=== PATIENT | male | born 1960 | race Caucasian/White ===

== ENCOUNTER 2017-02-27 06:42 | Day surgery (SDC) | payer OTHER ==
[2017-02-26 10:26] VITALS: BMI 32.6
[2017-02-27] MEDS ORDERED: Oxymetazoline HCl 0.05% ( 15 ML ) ONE ×2 (07:32→09:18)
[2017-02-27] MEDS ORDERED: Fentanyl 100 MCG/2 ML VIAL ONE (09:07)
[2017-02-27] MEDS ORDERED: Bacitracin Zinc Ointment 30 gm TUBE ONE ×2 (09:19→09:58)
[2017-02-27] MEDS ORDERED: Lidocaine 1% w/Epinephrine 1:200K 30 ML VIAL ONE (09:19)
[2017-02-27] MEDS ORDERED: Glycopyrrolate 0.2 MG/ML 5 ML SYRINGE ONE (09:33)
[2017-02-27] MEDS ORDERED: Ondansetron HCl/PF 4 MG/2 ML Vial ONE (09:33)
[2017-02-27] MEDS ORDERED: Dexamethasone 20 MG/5 ML VIAL ONE (09:33)
[2017-02-27] MEDS ORDERED: Lidocaine 2% PF 10 ML AMP (For Epidural Use) ONE (09:33)
[2017-02-27] MEDS ORDERED: Propofol 200 MG/20 ML VIAL ONE (09:33)
[2017-02-27] MEDS ORDERED: Succinylcholine Chloride 20 MG/ML 10 ml SYRINGE FS ONE (09:33)
[2017-02-27] MEDS ORDERED: Ketorolac Tromethamine 30 MG/ML VIAL ONE (09:33)
[2017-02-27] MEDS ORDERED: Metoclopramide HCl 10 MG/2 ML VIAL ONE (09:33)
[2017-02-27] MEDS ORDERED: Ondansetron HCl/PF 4 MG/2 ML Vial IVP PRN (11:04)
[2017-02-27] MEDS ORDERED: Promethazine HCl 25 MG/ML VIAL IM/IV PRN (11:04)
[2017-02-27] MEDS ORDERED: Non-Formulary Medication 1 EACH PO PRN (11:04)
[2017-02-27] MEDS ORDERED: Morphine Sulfate 2 MG/ML SYRINGE ONE ×2 (11:05→11:14)
[2017-02-27] MEDS ORDERED: Hydrocodone-Acetamin 15 ML UDCUP ONE (12:16)
--- NOTE | 2017-02-28 06:36 | OP ---
DATE OF PROCEDURE: 02/27/2017 PREOPERATIVE DIAGNOSES: 1. Chronic rhinosinusitis. 2. Left nasal cavity polyposis. 3. Allergic fungal sinusitis. 4. Nasal septal deviation. 5. Bilateral inferior turbinate hypertrophy. 6. Chronic tonsillitis. 7. Tonsillar hypertrophy. POSTOPERATIVE DIAGNOSES: 1. Chronic rhinosinusitis. 2. Left nasal cavity polyposis. 3. Allergic fungal sinusitis. 4. Nasal septal deviation. 5. Bilateral inferior turbinate hypertrophy. 6. Chronic tonsillitis. 7. Tonsillar hypertrophy. PROCEDURES: 1. Bilateral endoscopic sinus surgery, total ethmoidectomies. 2. Bilateral endoscopic sinus surgery, maxillary antrostomies. 3. Bilateral endoscopic sinus surgery, frontal sinusotomies. 4. Nasal septoplasty. 5. Bilateral inferior turbinate submucosal resection. 6. Tonsillectomy. SURGEON: Flavio Ceballos M.D. ESTIMATED BLOOD LOSS: 50 mL. COMPLICATIONS: None. ANESTHESIA: GETA. PROCEDURE: The patient was taken to the operating room and placed up on the table. General endotra cheal anesthesia was obtained by the Anesthesia staff. Tube was secured in the midline of the lower lip. Shoulder roll was then placed. The Grecia-Augustin mouth gag was then introduced into the oral c avity and was retracted. The tonsils were 3+ cryptic, a curved Allis clamp was then used to grasp t he tonsil and portions of the anterior pillar. The Bovie electrocautery was used to perform a subca psular tonsillectomy bilaterally. Following this, the patient was then positioned in the beach romelia r position and 0 degree scope was advanced into the nasal cavity. 1% lidocaine with 1:100,000 epine phrine was injected into the nasal septum, inferior turbinates and lateral nasal wall bilaterally. atient was then placed in the beach chair position, and Afrin pledgets were placed in the nasal cavi ty. Injections of 1% lidocaine with 1:100,000 epinephrine were made into the nasalseptum as well as the inferior turbinates. Patient was then prepped and draped in standard surgical fashion for nasal surgery. Following this, the Afrin pledgets were removed. A Júnior incision was made on the left n sergio septum. Submucoperichondrial dissection was performed. The deviated portions of the septum inc luded portions of the cartilage and the bony septum. These isolated areas were removed using three c utting rongeurs. There was noted to be a large dorsal and caudal strut, left intact for support of t he nose. The mucoperichondrial flaps were then reapproximated using a 4-0 gut stitch. Any straight p ieces of cartilage were crushed prior to this and placed between the mucoperichondrial flaps. Follow ing this, the inferior turbinates were then punctured with a submucosal coblation wand, and submucos al coblations were performed of multiple areas of the inferior portion of the anterior inferior turb inate. Please note that the submucosal microdebrider was used to submucosally resect the anterior and infer ior portions of the inferior turbinates bilaterally. Following this, the 0 degree scope was advance d to the middle meatus. The middle turbinates were gently medialized with a Taos elevator and the uncinate process was then identified bilaterally and was anteriorly fractured using the ball ended p robe. Using straight Blakesley forceps and the microdebrider, the uncinate process was removed. Ma xillary sinus ostia was identified and was gently widened using a microdebrider and straight Blakesl ey forceps. On the left maxillary sinus opening there was a large polyp obstructing the left maxill janusz sinus ostia and with partially opacified left maxillary sinus. There were multiple polyps that were identified in the left middle meatus which were removed using the microdebrider. Following thi s, the ethmoidal bulla was identified and was punctured on its medial and inferior aspect bilaterall y and was removed using the microdebrider and straight Blakesley forceps. The grand lamella was maritza ntified and was then punctured into the posterior ethmoidal cells. Working from posterior to anteri or, the ethmoidal cells were opened in a mucosal-sparing technique. On the left side, fungal debris was identified throughout the ethmoidal sinuses, which was cleaned using a straight Ludwig tip suc tion. Following this, the 45 degree scope and the upbiting microdebrider was used to further identi fy the frontal recess cells which were then opened with the microdebrider and the frontal sinus osti a was identified and was gently widened using the upbiting Blakesley forceps bilaterally. Following this, the nasal cavity was irrigated. MeroPacks were placed within the middle meatus. Tomas quintanillain ts were placed and secured. The patient tolerated the procedure well.
--- NOTE | 2017-02-28 09:06 | EKG ---
Test Reason : PREOP Blood Pressure : / mmHG Vent. Rate : 065 BPM Atrial Rate : 065 BPM P-R Int : 182 ms QRS Dur : 112 ms QT Int : 416 ms P-R-T Axes : 024 -30 -02 degrees QTc Int : 432 ms Normal sinus rhythm Left axis deviation Incomplete right bundle branch block Abnormal ECG When compared with ECG of 05-AUG-2014 08:19, Incomplete right bundle branch block is now Present Confirmed by KAISER FERREIRA ([id number]) on 02/28/2017 9:05:44 AM Referred By: YONI Confirmed By:KAISER FERREIRA
== END 2017-02-27 13:00 | disposition home or self-care (01) ==
LOC: SDC 06:42
PROVIDERS: ATTEND Otolaryngology Plastic Surgery within the Head & Neck
PROC: 09BM4ZZ Excision of Nasal Septum, Percutaneous Endoscopic Approach (ICD-10-PCS; principal; 2017-02-27)
PROC: 09BU4ZZ Excision of Right Ethmoid Sinus, Percutaneous Endoscopic Approach (ICD-10-PCS; principal; 2017-02-27)
PROC: 099R4ZZ Drainage of Left Maxillary Sinus, Percutaneous Endoscopic Approach (ICD-10-PCS; principal; 2017-02-27)
PROC: 0CTPXZZ Resection of Tonsils, External Approach (ICD-10-PCS; principal; 2017-02-27)
PROC: 099Q4ZZ Drainage of Right Maxillary Sinus, Percutaneous Endoscopic Approach (ICD-10-PCS; principal; 2017-02-27)
PROC: 09BV4ZZ Excision of Left Ethmoid Sinus, Percutaneous Endoscopic Approach (ICD-10-PCS; principal; 2017-02-27)
PROC: 099T4ZZ Drainage of Left Frontal Sinus, Percutaneous Endoscopic Approach (ICD-10-PCS; principal; 2017-02-27)
PROC: 099S4ZZ Drainage of Right Frontal Sinus, Percutaneous Endoscopic Approach (ICD-10-PCS; principal; 2017-02-27)
PROC: 09BL4ZZ Excision of Nasal Turbinate, Percutaneous Endoscopic Approach (ICD-10-PCS; principal; 2017-02-27)
DX: J32.9 Chronic sinusitis, unspecified (principal); J33.0 Polyp of nasal cavity; J30.89 Other allergic rhinitis; J34.2 Deviated nasal septum; J34.3 Hypertrophy of nasal turbinates; J35.01 Chronic tonsillitis
CPT/HCPCS: 88304; 93005; 93010; 96374; J0131; J1100; J1170; J1885; J2001; J2270; J2405; J2704; J2765; J3010

== ENCOUNTER 2018-10-15 15:53 | Outpatient (CLI) | payer OTHER ==
--- NOTE | 2018-10-15 16:15 | RAD ---
EXAM: 3 views of the right foot HISTORY: Right heel pain for 3 weeks COMPARISON: None FINDINGS: 3 views of the right foot shows no evidence of acute fracture or dislocation. No soft tissu e swelling is seen. No degenerative changes are present. IMPRESSION: No evidence of acute osseous abnormality.
== END 2018-10-15 15:54 | disposition home or self-care (01) ==
LOC: SCSRAD 15:53
PROVIDERS: ATTEND Family Medicine
DX: M79.671 Pain in right foot (principal)

== ENCOUNTER 2019-02-02 13:22 | Observation (INO) | payer OTHER ==
[2019-02-02 14:18] LABS: #Basophils 0.1 thou/uL (0.0-0.2); #Eosinphils 0.3 thou/uL (0.0-0.7); #Lymphocytes 1.9 thou/uL (1.20-3.40); #Monocytes 0.5 thou/uL (0.11-0.59); #Neutrophils 4.4 thou/uL (1.40-6.50); %Eosinophils 3.6 % (0.0-10.0); %Lymphocytes 26.6 % (21.0-51.0); %Monocytes 6.5 % (0.0-10.0); %Neutrophils 62.4 % (42.0-75.0); Hemoglobin 15.3 g/dL (14.0-18.0); Mean Corpuscular HGB CONC 34.6 g/dL (32.0-36.0); Mean Corpuscular Hemoglobin 30.5 pg (27.0-31.0); Mean Corpuscular Volume 88.4 fL (78.0-98.0); Mean Platelet Volume 7.2 fL (7.4-10.4); Platelet Count 233 thou/uL (130-400); RBC Distribution Width 12.2 % (11.5-14.5)
[2019-02-02 14:22] LABS: Prothrombin Time 12.9 SEC (12.0-14.7)
[2019-02-02 14:23] LABS: PTT 28.6 SEC (22.9-36.1)
[2019-02-02 14:32] LABS: ALT (SGPT) 49 U/L (8-55); AST (SGOT) 29 U/L (5-34); Albumin 4.2 g/dL (3.5-5.0); Alkaline Phosphatase 50 U/L (40-150); Anion Gap 13 mmol/L (10-20); BUN (Urea Nitrogen) 14 mg/dL (8.4-25.7); CK (CPK) 159 U/L (30-200); Calc. Creatinine Clearance 0 mL/min (70-130); Calcium 9.4 mg/dL (7.8-10.44); Carbon Dioxide 28 mmol/L (22-29); Chloride 102 mmol/L (98-107); Estimated GFR-MDRD 84; Globulin 3.1 g/dL (2.4-3.5); Glucose 202 mg/dL (70-105); Potassium 4.1 mmol/L (3.5-5.1); Protein, Total 7.3 g/dL (6.0-8.3); Sodium 139 mmol/L (136-145)
[2019-02-02] MEDS ORDERED: Meclizine HCl 25 MG TAB ONE (14:39)
--- NOTE | 2019-02-02 14:45 | CT ---
CT OF THE HEAD WITHOUT CONTRAST: DATE: 02/02/2019. COMPARISON: None. HISTORY: Dizziness and lightheadedness, vertigo. TECHNIQUE: Axial CT imaging at 4.8 mm intervals from vertex through the skull base without contrast. FINDINGS: There is opacification of the ethmoid air cells on the right and partial opacification of the frontal sinus on the right. There is hyperdensity within the opacified ethmoid air cells on the right sugge sting polyposis or chronic/fungal infection. No acute osseous abnormality is evident. No intracranial hemorrhage, midline shift, mass effect, or ventricular enlargement. There is extensi ve soft tissue calcification involving the left ear. IMPRESSION: No acute intracranial abnormality noted. Incidental findings as detailed above. POS: OFF
[2019-02-02] MEDS ORDERED: Aspirin Chewable 81 MG TAB ONE (15:08)
[2019-02-02 15:28] LABS: Bilirubin Negative (Negative); Blood, Urine Negative (Negative); Clarity Clear (Clear); Glucose, Urine (Dipstick) Negative (Negative); Leukocyte Negative (Negative); Nitrite Negative (Negative); Protein, Urine (Dipstick) Negative (Neg-Trace); Urobilinogen 0.2 mg/dL (Less than 2)
[2019-02-02 15:45] LABS: Amphetamine Not Detected (NotDetected); Barbiturates Screen Not Detected (NotDetected); Benzodiazepine Screen Not Detected (NotDetected); Cocaine Metabolite Screen Not Detected (NotDetected); Medtox Control Line Valid? VALID (VALID); Methadone Not Detected (NotDetected); Methamphetamine Not Detected (NotDetected); Opiate Screen Detected (NotDetected); Oxycodone Screen Not Detected (NotDetected); Phencyclidine (PCP) Not Detected (NotDetected); THC/Cannabinoid Screen Not Detected (NotDetected); Tricyclic Screen Not Detected (NotDetected)
[2019-02-02] MEDS ORDERED: Ondansetron ODT 4 MG TAB SL PRN (17:03)
[2019-02-02] MEDS ORDERED: Ondansetron PF 4 MG/2 ML Vial IVP PRN (17:03)
[2019-02-02] MEDS ORDERED: Acetaminophen 325 MG TAB PO PRN (17:03)
[2019-02-02 17:31] VITALS: BMI 31.0
[2019-02-02] MEDS ORDERED: Acetaminophen/Codeine 120-12MG/5 ML UDCUP PO PRN (18:15)
[2019-02-02] MEDS ORDERED: Sodium Chloride 0.9% 1,000 ML IV SCH (18:30)
[2019-02-02] MEDS ORDERED: Meclizine HCl 25 MG TAB PO SCH (21:00)
[2019-02-02] MEDS ORDERED: Atorvastatin Calcium 10 MG TAB PO SCH (21:00)
[2019-02-02] MEDS ORDERED: clonazePAM 1 MG TAB PO SCH (21:00)
[2019-02-02] MEDS: DULoxetine 30 MG CAP PO SCH (21:00)
[2019-02-02] MEDS ORDERED: SUVOREXANT PO SCH (21:00)
[2019-02-02] MEDS: CeleCOXIB 100 MG CAP PO SCH (21:00)
[2019-02-02] MEDS: metFORMIN 500 MG TAB PO SCH (21:01)
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
[2019-02-03 05:13] LABS: #Eosinphils 0.4 thou/uL (0.0-0.7); #Lymphocytes 2.5 thou/uL (1.20-3.40); #Monocytes 0.6 thou/uL (0.11-0.59); #Neutrophils 3.5 thou/uL (1.40-6.50); %Basophils 0.5 % (0.0-1.0); %Eosinophils 6.1 % (0.0-10.0); %Lymphocytes 35.3 % (21.0-51.0); %Monocytes 8.2 % (0.0-10.0); %Neutrophils 49.9 % (42.0-75.0); Hemoglobin 14.5 g/dL (14.0-18.0); Mean Corpuscular HGB CONC 33.9 g/dL (32.0-36.0); Mean Corpuscular Hemoglobin 30.3 pg (27.0-31.0); Mean Corpuscular Volume 89.5 fL (78.0-98.0); Mean Platelet Volume 7.8 fL (7.4-10.4); Platelet Count 222 thou/uL (130-400); RBC Distribution Width 12.2 % (11.5-14.5); Red Blood Cell (RBC) Count 4.78 mill/uL (4.70-6.10)
[2019-02-03 05:29] LABS: Anion Gap 10 mmol/L (10-20); BUN (Urea Nitrogen) 14 mg/dL (8.4-25.7); Calc. Creatinine Clearance 135 mL/min (70-130); Calcium 8.8 mg/dL (7.8-10.44); Carbon Dioxide 28 mmol/L (22-29); Chloride 103 mmol/L (98-107); Estimated GFR-MDRD Greater than 90; Glucose 117 mg/dL (70-105); Potassium 3.6 mmol/L (3.5-5.1); Sodium 137 mmol/L (136-145)
[2019-02-03] MEDS: CeleCOXIB 100 MG CAP PO SCH (08:44)
[2019-02-03] MEDS: DULoxetine 30 MG CAP PO SCH (08:44)
[2019-02-03] MEDS: metFORMIN 500 MG TAB PO SCH (08:44)
[2019-02-03] MEDS ORDERED: Chlorthalidone 25 MG TAB PO SCH (09:00)
[2019-02-03] MEDS ORDERED: Amlodipine 10 MG TAB PO SCH (09:00)
[2019-02-03] MEDS ORDERED: Aspirin 81 mg Enteric Coated Tablet PO SCH (09:00)
[2019-02-03] MEDS ORDERED: Cetirizine HCl 10 MG TAB PO SCH (09:00)
[2019-02-03] MEDS ORDERED: Enoxaparin Sodium 40 MG/0.4 ML SYRINGE SC SCH (09:00)
[2019-02-03] MEDS ORDERED: clonazePAM 0.5 MG TAB PO SCH ×2 (09:00→12:00)
[2019-02-03] MEDS ORDERED: Meclizine HCl 12.5 MG TAB PO PRN (10:03)
--- NOTE | 2019-02-03 12:52 | ULT ---
CAROTID ARTERIAL DOPPLER ULTRASOUND: DATE: 02/03/2019. COMPARISON: None. HISTORY: Dizziness. TECHNIQUE: Multiplanar grayscale sonographic imaging of the arterial structures of the neck obtained with color flow and spectral analysis. FINDINGS: There is antegrade blood flow and normal arterial waveforms seen within the carotid and the vertebral system bilaterally. VESSEL PSV(CM/S) Right CCA 118 Right ICA 53 Right ECA 88 Left CCA 139 Left ICA 67 Left ECA 94 IC/CC ratio is 0.5 bilaterally. IMPRESSION: There is elevated velocity within the left common carotid artery which correlates with a moderate deg ree of stenosis (50-69%). This could be best assessed via nonemergent follow-up CT angiogram of the neck. Transcribed Date/Time: 02/03/2019 1:35 PM
--- NOTE | 2019-02-03 12:59 | MRI ---
BRAIN MRI WITHOUT IV CONTRAST: HISTORY: Dizziness. COMPARISON: 02/02/2019 CT. FINDINGS: No focal mass or midline shift. No intra- or extraaxial hemorrhage. No evidence for acute infarct. Expected flow voids are present. Maxillary, right ethmoid, right frontal, and sphenoid sinus mucosa l disease. IMPRESSION: Sinus mucosal disease. No evidence for other significant acute intracranial process. POS: TPC
[2019-02-03 15:55] VITALS: TEMP 98.5
[2019-02-03 16:09] VITALS: BP 134/94
== END 2019-02-03 18:50 | disposition home or self-care (01) ==
LOC: SCSER 13:22 → 2SE 15:25
PROVIDERS: ADMIT Family Medicine; ATTEND Family Medicine
DX: R42 Dizziness and giddiness (principal); I10 Essential (primary) hypertension; E78.5 Hyperlipidemia, unspecified; E11.9 Type 2 diabetes mellitus without complications; K21.9 Gastro-esophageal reflux disease without esophagitis; G47.00 Insomnia, unspecified; M19.90 Unspecified osteoarthritis, unspecified site; F41.9 Anxiety disorder, unspecified; J32.9 Chronic sinusitis, unspecified; Z87.891 Personal history of nicotine dependence; Z79.82 Long term (current) use of aspirin; Z79.84 Long term (current) use of oral hypoglycemic drugs; Z79.899 Other long term (current) drug therapy; Z98.890 Other specified postprocedural states
CPT/HCPCS: 36415; 36416; 70450; 70551; 80048; 80053; 80306; 81003; 82550; 84484; 85025; 85610; 85730; 93005; 93880; 96372; G0378; J1650; J8597

== ENCOUNTER 2022-08-09 12:09 | Outpatient (CLI) | payer OTHER | END 2022-08-09 12:10 | disposition home or self-care (01) | LOC: SCSRAD 12:09 | PROVIDERS: ATTEND Family Medicine | DX: R05.1 Acute cough (principal) | CPT/HCPCS: 71046 ==